=== PATIENT | male | born 2000 | race Two or more races ===

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

== ENCOUNTER 2021-12-18 12:41 | Emergency (ER) | payer MEDICAID, OTHER ==
[2021-12-18 13:03] LABS: BASOPHILS % (AUTO) 0.4 %; EOSINOPHILS # (AUTO) 0.1 10^3/uL (0.0-0.7); EOSINOPHILS % (AUTO) 0.8 %; HCT - HEMATOCRIT 48.1 % (42.0-52.0); LYMPHOCYTES # (AUTO) 2.3 10^3/uL (1.5-3.5); LYMPHOCYTES % (AUTO) 24.3 %; MEAN CORPUSCULAR HEMOGLOBIN 27.3 pg (27.0-31.0); MEAN CORPUSCULAR HGB CONC 33.3 g/dL (32.0-36.0); MEAN CORPUSCULAR VOLUME 82.1 fL (80.0-94.0); MEAN PLATELET VOLUME 10.8 fL (7.4-11.4); MONOCYTES # (AUTO) 0.6 10^3/uL (0.0-1.0); MONOCYTES % (AUTO) 6.2 %; NEUTROPHILS # (AUTO) 6.5 10^3/uL (1.5-6.6); NEUTROPHILS % (AUTO) 68.1 %; PLT - PLATELET COUNT 308 10^3/uL (130-450); RED BLOOD COUNT 5.86 10^6/uL (4.70-6.10); RED CELL DISTRIBUTION WIDTH 12.5 % (12.0-15.0); WHITE BLOOD COUNT 9.5 x10^3/uL (4.8-10.8)
[2021-12-18 13:16] LABS: ALBUMIN 4.8 g/dL (3.2-5.5); ALBUMIN/GLOBULIN RATIO 1.4 (1.0-2.2); CALCIUM 9.4 mg/dL (8.5-10.3); CREATININE 0.9 mg/dL (0.6-1.2); POTASSIUM 3.9 mmol/L (3.5-5.0); TOTAL PROTEIN 8.2 g/dL (6.7-8.2)
[2021-12-18] MEDS ORDERED: SODIUM CHLORIDE 0.9% 1,000 ML IV STA (15:13)
[2021-12-18] MEDS ORDERED: ONDANSETRON 4 MG/2 ML VIAL IVP STA (15:22)
[2021-12-18 15:23] LABS: BILIRUBIN,URINE NEGATIVE (NEGATIVE); CLARITY,URINE CLEAR (CLEAR); GLUCOSE, URINE (UA) NEGATIVE (NEGATIVE); KETONES,URINE (UA) NEGATIVE (NEGATIVE); LEUKOCYTE ESTERASE, URINE NEGATIVE (NEGATIVE); NITRITE,URINE NEGATIVE (NEGATIVE); OCCULT BLOOD,URINE NEGATIVE (NEGATIVE); PROTEIN,URINE NEGATIVE (NEGATIVE); UROBILINOGEN,URINE 0.2 (NORMAL) E.U./dL (NORMAL)
[2021-12-18] MEDS ORDERED: ONDANSETRON ODT 4 MG TABLET TL STA (16:01)
--- NOTE | 2021-12-18 16:08 | ED Physician Documentation ---
PD HPI ABD PAIN - Stated complaint Stated Complaint: NAUSEA/CHILLS/WEAKNESS - Chief complaint Chief Complaint: Abd Pain - History obtained from History obtained from: Patient, Family - Additional information Additional information: Pt is 21 yo M with no significant past medical history presenting for evaluation of generalized weakness and ongoing nausea x 1 week. Pt reports nausea started on Monday wiht 1 episode of vomiting. Since then has felt ongoing nausea and not wanting to eat. Has had 2 loose stools today. Otherwise reports decreased energy. No abdominal pain. No fever, cough, CP, SOB, sick contacts. No dysuria. Review of Systems Constitutional: denies: Fever Cardiac: denies: Chest pain / pressure Respiratory: denies: Dyspnea GI: reports: Nausea. denies: Abdominal Pain, Vomiting : denies: Dysuria, Unable to Void Musculoskeletal: denies: Back pain Neurologic: denies: Generalized weakness PD PAST MEDICAL HISTORY - Past Surgical History Past Surgical History: Yes HEENT: Tonsil/Adenoidectomy - Present Medications Home Medications: Ambulatory Orders Medication Instructions Recorded Confirmed Ondansetron Odt [Zofran] 4 mg TL Q6H PRN #10 tablet 12/18/21 - Allergies Allergies/Adverse Reactions: Allergies Allergy/AdvReac Type Severity Reaction Status Date / Time iodine Allergy Rash Verified 12/18/21 12:50 latex Allergy Rash Verified 12/18/21 12:50 - Social History Does the pt smoke?: No Smoking Status: Never smoker Does the pt drink ETOH?: No Does the pt have substance abuse?: No - Immunizations Immunizations are current?: Yes - POLST Patient has POLST: No PD ED PE NORMAL - General General: Alert and oriented X 3, No acute distress, Well developed/nourished - HEENT HEENT: Atraumatic, Moist mucous membranes, Pharynx benign - Cardiac Cardiac: RRR, Strong equal pulses - Respiratory Respiratory: No respiratory distress, Clear bilaterally - Abdomen Abdomen: Soft, Non tender, Non distended - Back Back: No CVA TTP, No spinal TTP - Derm Derm: Warm and dry - Extremities Extremities: No calf tenderness / cord - Neuro Neuro: Alert and oriented X 3, No motor deficit, Normal speech Results - Vitals Vitals: Vital Signs - 24 hr 12/18/21 12/18/21 12:44 16:34 Temperature 36 C L Heart Rate 90 74 Respiratory 16 18 Rate Blood Pressure 212/120 H 140/84 H O2 Saturation 96 100 Oxygen O2 Source Room air - Labs Labs: Laboratory Tests 12/18/21 12/18/21 12/18/21 12:58 12:58 15:13 WBC 9.5 RBC 5.86 Hgb 16.0 Hct 48.1 MCV 82.1 MCH 27.3 MCHC 33.3 RDW 12.5 Plt Count 308 MPV 10.8 Neut # (Auto) 6.5 Lymph # (Auto) 2.3 [place] # (Auto) 0.6 Eos # (Auto) 0.1 Baso # (Auto) 0.0 Absolute Nucleated RBC 0.00 Nucleated RBC % 0.0 Sodium 134 L Potassium 3.9 Chloride 99 L Carbon Dioxide 26 Anion Gap 9.0 BUN 9 Creatinine 0.9 Estimated GFR (MDRD) 107 Glucose 99 Calcium 9.4 Total Bilirubin 1.0 AST 25 ALT 34 Alkaline Phosphatase 86 Total Protein 8.2 Albumin 4.8 Globulin 3.4 Albumin/Globulin Ratio 1.4 Lipase 30 Urine Color YELLOW Urine Clarity CLEAR Urine pH 6.0 Ur Specific [place] 1.010 Urine Protein NEGATIVE Urine Glucose (UA) NEGATIVE Urine Ketones NEGATIVE Urine Occult Blood NEGATIVE Urine Nitrite NEGATIVE Urine Bilirubin NEGATIVE Urine Urobilinogen 0.2 (NORMAL) Ur Leukocyte Esterase NEGATIVE Ur Microscopic Review NOT INDICATED Urine Culture Comments NOT INDICATED PD MEDICAL DECISION MAKING - ED course Complexity details: reviewed results, re-evaluated patient, d/w patient, d/w family ED course: Pt evaluated for nausea and weakness. Initial BP elevated but repeat is significantly better. Labs reassuring. Pt clinically well appearing, ambulating, not lethargic. No abdominal tenderness. No CP or SOB. No URI symptoms. Pt given PO zofran and counseled to continue with PO hydration and close follow up if symptoms persist. Pt and father counseled on concerning symptoms to return for. Departure - Departure Disposition: 01 Home, Self Care Clinical Impression: Nausea alone, Generalized weakness Condition: Stable Instructions: ED Nausea Vomiting Prescriptions: Ondansetron Odt [Zofran] 4 mg TL Q6H PRN #10 tablet PRN Reason: Nausea / Vomiting Comments: You were evaluated for nausea, generalized weakness and recent diarrhea. Your labs are very reassuring with no signs of anemia and normal electrolytes. You do not have abdominal tenderness I do not think you need imaging of your abdomen at this time. I have sent a prescription for nausea medications to [facility] in [place]. Please use this medication as needed and continue to stay hydrated. I would continue with a bland diet. If your symptoms or not improving past the weekend I would recommend follow-up with your primary care doctor. If you have any worsening symptoms such as development of pain then please return to the emergency department. Discharge Date/Time: 12/18/21 16:33
[2021-12-18 16:34] VITALS: BP 140/84
== END 2021-12-18 16:33 | disposition home or self-care (01) ==
LOC: ED 12:41
DX: R11.0 Nausea (principal); R53.1 Weakness
CPT/HCPCS: 36415; 80053; 81003; 83690; 85025; 99282; 99283; Q0162; 81001; 87086

== ENCOUNTER 2023-11-12 14:26 | Emergency (ER) | payer MEDICAID ==
[2023-11-12 15:07] LABS: BASOPHILS % (AUTO) 0.5 %; EOSINOPHILS # (AUTO) 0.2 10^3/uL (0.0-0.7); EOSINOPHILS % (AUTO) 1.9 %; HCT - HEMATOCRIT 48.6 % (42.0-52.0); HGB - HEMOGLOBIN 15.9 g/dL (14.0-18.0); LYMPHOCYTES # (AUTO) 2.2 10^3/uL (1.5-3.5); LYMPHOCYTES % (AUTO) 24.7 %; MEAN CORPUSCULAR HEMOGLOBIN 27.1 pg (27.0-31.0); MEAN CORPUSCULAR HGB CONC 32.7 g/dL (32.0-36.0); MEAN CORPUSCULAR VOLUME 82.9 fL (80.0-94.0); MEAN PLATELET VOLUME 10.7 fL (7.4-11.4); MONOCYTES # (AUTO) 0.6 10^3/uL (0.0-1.0); NEUTROPHILS # (AUTO) 5.8 10^3/uL (1.5-6.6); NEUTROPHILS % (AUTO) 65.7 %; PLT - PLATELET COUNT 287 10^3/uL (130-450); RED BLOOD COUNT 5.86 10^6/uL (4.70-6.10); RED CELL DISTRIBUTION WIDTH 12.5 % (12.0-15.0); WHITE BLOOD COUNT 8.8 x10^3/uL (4.8-10.8)
[2023-11-12 15:21] LABS: ALBUMIN 4.6 g/dL (3.2-5.5); ALBUMIN/GLOBULIN RATIO 1.5 (1.0-2.2); BILIRUBIN,TOTAL 0.7 mg/dL (0.2-1.0); CALCIUM 9.6 mg/dL (8.5-10.3); CREATININE 0.8 mg/dL (0.6-1.3); POTASSIUM 4.1 mmol/L (3.5-4.5); TOTAL PROTEIN 7.7 g/dL (6.4-8.9)
--- NOTE | 2023-11-12 15:26 | XRAY Report ---
PROCEDURE: Chest 1V INDICATIONS: Chest Pain TECHNIQUE: One view of the chest was acquired. COMPARISON: 03/28/2019 FINDINGS: Surgical changes and devices: None. Lungs and pleura: No pleural effusions or pneumothorax. Lungs are clear. Mediastinum: Mediastinal contours appear normal. Heart size is normal. Bones and chest wall: No suspicious bony lesions. Overlying soft tissues appear unremarkable. IMPRESSION: No acute cardiopulmonary process. Reviewed by: Fidel Allen MD on 11/12/2023 3:25 PM PDT Approved by: Fidel Allen MD on 11/12/2023 3:25 PM PDT Station ID: [id number]
[2023-11-12 15:30] LABS: TROPONIN I HIGH SENSITIVITY 2.7 ng/L (2.3-19.7)
--- NOTE | 2023-11-12 16:19 | ED Physician Documentation ---
PD HPI CHEST PAIN - Stated complaint Stated Complaint: CHEST PX - Chief complaint Chief Complaint: Cardiac - Additional information Additional information: 23-year-old male with history of obesity and anxiety presents emergency department for chest pain. Patient says this chest pain has been ongoing now for about 2 days. Patient says it is mostly exacerbated after large meals yesterday he ate potatoes and eggs and helped chest pain and then again today when he ate eggs and potatoes he also started to experience chest pain. No nausea vomiting no shortness of breath no recent medication changes he says that he does not routinely see a primary care provider. No recent travel he is not on any hormones and no unilateral leg pain or calf pain or swelling PD PAST MEDICAL HISTORY - Past Medical History Past Medical History: No Cardiovascular: None Respiratory: None Neuro: None Endocrine/Autoimmune: None GI: None : None HEENT: None Psych: None Musculoskeletal: None Derm: None - Past Surgical History Past Surgical History: Yes HEENT: Tonsil/Adenoidectomy - Present Medications Home Medications: Ambulatory Orders Medication Instructions Recorded Confirmed Naproxen 500 mg PO BID #20 tab 07/31/22 methocarbamoL [Robaxin] 500 mg PO Q6H PRN #20 tablet 07/31/22 - Allergies Allergies/Adverse Reactions: Allergies Allergy/AdvReac Type Severity Reaction Status Date / Time iodine Allergy Rash Verified 11/12/23 14:33 latex Allergy Rash Verified 11/12/23 14:33 - Social History Does the pt smoke?: No Smoking Status: Never smoker Does the pt drink ETOH?: No Does the pt have substance abuse?: No - Immunizations Immunizations are current?: Yes - POLST Patient has POLST: No PD ED PE NORMAL - Vitals Vital signs reviewed: Yes - General General: Alert and oriented X 3, No acute distress, Well developed/nourished - HEENT HEENT: Atraumatic, PERRL - Neck Neck: Supple, no meningeal sign - Cardiac Cardiac: RRR, No murmur - Respiratory Respiratory: No respiratory distress, Clear bilaterally - Abdomen Abdomen: Normal bowel sounds, Soft, Non tender, No organomegaly - Extremities Extremities: No edema, No calf tenderness / cord Results - Vitals Vitals: Vital Signs - 24 hr 11/12/23 11/12/23 14:33 16:35 Temperature 36.8 C Heart Rate 77 80 Respiratory 16 17 Rate Blood Pressure 150/100 H 147/90 H O2 Saturation 98 100 Oxygen O2 Source Room air - EKG (time done) 1434 EKG releavant findings:: EKG personally interpreted by author of this note. Relevant findings are: Rate: Rate (enter#) (77) Rhythm: NSR [place]: Normal Intervals: Normal HI QRS: Normal Ischemia: Normal ST segments Computer interpretation: Agree with computer - Labs Labs: Laboratory Tests 11/12/23 11/12/23 15:02 15:02 WBC 8.8 RBC 5.86 Hgb 15.9 Hct 48.6 MCV 82.9 MCH 27.1 MCHC 32.7 RDW 12.5 Plt Count 287 MPV 10.7 Neut # (Auto) 5.8 Lymph # (Auto) 2.2 [place] # (Auto) 0.6 Eos # (Auto) 0.2 Baso # (Auto) 0.0 Absolute Nucleated RBC 0.00 Nucleated RBC % 0.0 Sodium 137 Potassium 4.1 Chloride 102 Carbon Dioxide 29 Anion Gap 6.0 BUN 9 Creatinine 0.8 Estimated GFR (MDRD) 120 Glucose 91 Calcium 9.6 Total Bilirubin 0.7 AST 17 ALT 25 Alkaline Phosphatase 73 Troponin I High Sens 2.7 Total Protein 7.7 Albumin 4.6 Globulin 3.1 Albumin/Globulin Ratio 1.5 Lipase 16 - Rads (name of study) Chest x-ray Relevant Findings:: Final report received, EMP independent interpretation of test, Other (No acute cardiopulmonary abnormalities or findings) PD Medical Decision Making - ED course ED course: Exam without evidence of volume overload so doubt heart failure. EKG without signs of active ischemia. Given the timing of pain to ER presentation, single troponin was negative so doubt NSTEMI. Presentation not consistent with acute PE ( PERC negative),pneumothorax (not visualized on chest xr), thoracic aortic dissection, pericarditis, tamponade, pneumonia (no infectious symptoms, clear chest xr), myocarditis (no recent illness, neg trop). HEART score:2 so discharge patient. He was given a GI cocktail as well as Protonix here in the emergency department and did notice some alleviation in his chest pain this is most likely due to acid reflux he is told to establish care with primary care provider as soon as possible he is given strict ER return precautions all questions answered patient is safe for discharge at this time. Departure - Departure Disposition: 01 Home, Self Care Clinical Impression: GERD (gastroesophageal reflux disease) Qualifiers: Esophagitis presence: without esophagitis Qualified Code(s): K21.9 - Gastro- esophageal reflux disease without esophagitis Chest pain Qualifiers: Chest pain type: unspecified Qualified Code(s): R07.9 - Chest pain, unspecified Instructions: GERD Dc, Antacids Comments: Thank you for trusting us with your care. Your chest pain is most likely due to acid reflux especially that you are experiencing this pain after meals. I would strongly encourage you to establish care with a primary care provider soon you can call your insurance and see if there is any primary care providers accepting that accept your insurance. As we discussed I would strongly encourage you to start having consistent exercise and diet to help with anxiety and get established with primary care provider soon as possible you can buy [id number] antacid make medications like Prilosec and see if this helps with your acid reflux symptoms as well as Tums. Please come back in if your chest pain is getting any worse or starting to change. Wishing you a speedy recovery. Forms: PCP List Discharge Date/Time: 11/12/23 16:35
[2023-11-12] MEDS: PANTOPRAZOLE 40 MG TABLET PO STA (16:20)
[2023-11-12] MEDS: GI COCKTAIL 120 ML BOTTLE PO PRN (16:20)
[2023-11-12 16:44] VITALS: BP 147/90; O2SAT 100
== END 2023-11-12 16:35 | disposition home or self-care (01) ==
LOC: ED 14:26
DX: K21.9 Gastro-esophageal reflux disease without esophagitis (principal)
CPT/HCPCS: 36415; 71045; 80053; 83690; 84484; 85025; 93005; 99284; A9270